=== PATIENT | male | born 1990 | race Two or more races ===

== ENCOUNTER 2018-12-27 19:53 | Emergency (ER) | payer OTHER ==
[~2018-12-27] VITALS: Ht 170.2 cm; Wt 79.4 kg
[~2018-12-27 19:53] MED LIST: ACET500C5 PO; ONDA4TAB14 PO
[2018-12-27 20:07] VITALS: Ht 170.2 cm; Wt 79.4 kg
[2018-12-27] MEDS ORDERED: ONDANSETRON 4 MG INJ IV STA (20:32)
[2018-12-27] MEDS ORDERED: ACETAMINOPHEN 500 MG TAB PO STA (20:32)
[2018-12-27] MEDS ORDERED: morphine 4 MG/ML VIAL IV STA (20:32)
[2018-12-27] MEDS ORDERED: SODIUM CHLORIDE 0.9% 1L BAG IV* STA (20:32)
[2018-12-27 22:57] VITALS: BP 115/62; PULSE 105; RESP 18
--- NOTE | 2018-12-27 23:13 | ERD ---
ER Documentation Chief Complaint Chief Complaint abd pain; nausea; denies vomiting HPI Patient is a 28-year-old male, past medical history of anal fistula, aortic insufficiency, presents the ER for concerns of abdominal pain, nausea and chills which started this morning. Patient states pain is localized to the epigastric region. He denies any radiation of the pain. Patient denies any fried, acidic, spicy food intakes. Patient denies any chest pain or shortness of breath. Patient denies any vomiting or diarrhea. Patient also reports hand numbness and foot numbness. Patient denies any rectal bleeding, dysuria, frequency, urgency or hematuria. Patient states he has upcoming anal fistula surgery. Denies any IV drug use. ROS All systems reviewed and are negative except as per history of present illness. Medications Home Meds Active Scripts Ondansetron (Ondansetron Odt) 4 Mg Tab.rapdis, 4 MG PO Q6H PRN for NAUSEA AND/OR VOMITING, #10 TAB Prov:VAUGHN FLOR PA-C 12/27/18 Acetaminophen* (Tylophen*) 500 Mg Capsule, 1 CAP PO Q6H PRN for PAIN AND OR ELEVATED TEMP, #20 CAP Prov:VAUGHN FLOR PA-C 12/27/18 Allergies Allergies: Coded Allergies: No Known Allergy (Unverified , 12/27/18) PMhx/Soc Medical and Surgical Hx: pt denies Surgical Hx History of Surgery: No Anesthesia Reaction: No Hx Neurological Disorder: No Hx Respiratory Disorders: No Hx Cardiac Disorders: No Hx Psychiatric Problems: No Hx Miscellaneous Medical Probl: No Hx Alcohol Use: Yes Hx Substance Use: No Hx Tobacco Use: No Smoking Status: Never smoker FmHx Family History: No diabetes Physical Exam Vitals Vital Signs Date Temp Pulse Resp B/P (MAP) Pulse Ox O2 O2 Flow FiO2 Time Delivery Rate 12/27/18 100.0 105 18 115/62 Room Air 22:57 (79) 12/27/18 101.8 20:50 12/27/18 134 18 131/81 97 20:33 (98) 12/27/18 101.5 20:23 12/27/18 98.9 140 18 135/85 20:07 (102) Physical Exam GENERAL: Well-developed, well-nourished male. Appears in no acute distress. HEAD: Normocephalic, atraumatic. No deformities or ecchymosis. EYE: Pupils equal, round, and reactive to light. EOMs intact. No conjunctival erythema. No eye discharge. ENT: External ear without any masses or tenderness. Auditory canals clear bilaterally. TM visualized bilaterally, non-erythematous, non-bulging. Nasal mucosa pink with no discharge. Oropharynx is pink without any tonsillar erythema or exudates. No uvula deviation. No kissing tonsils. NECK: Supple. No meningismus. Normal ROM of the neck. LUNG: Clear to auscultation bilaterally. No rhonchi, wheezing, rales or coarse breath sounds. HEART: Tachycardia cardiac no murmurs, rubs or gallops. ABDOMEN: Soft, and nondistended. Tender to palpation in all 4 quadrants, greatest in the epigastric region.. Positive bowel sounds in all four quadrants. No rebound tenderness, no guarding. (-) McBurney's point tenderness. No CVA tenderness. EXTREMITES: Equal pulses bilaterally. No peripheral clubbing, cyanosis or edema. No unilateral leg swelling. NEUROLOGIC: Alert and oriented to person, place and time. Moving all four extremities. 5/5 strength in all extremities. Normal speech. Steady gait. SKIN: Normal color. Warm and dry. No rashes or lesions. Result Diagram: 12/27/18204912/27/182049 Results 24 hrs Laboratory Tests Test 12/27/18 20:50 12/27/18 21:11 White Blood Count 9.0 10^3/ul Red Blood Count 5.87 10^6/ul Hemoglobin 15.9 g/dl Hematocrit 46.8 % Mean Corpuscular Volume 79.7 fl Mean Corpuscular Hemoglobin 27.1 pg Mean Corpuscular Hemoglobin Concent 34.0 g/dl Red Cell Distribution Width 12.4 % Platelet Count 263 10^3/UL Mean Platelet Volume 9.8 fl Immature Granulocytes % 0.200 % Neutrophils % 81.9 % Lymphocytes % 11.2 % Monocytes % 6.0 % Eosinophils % 0.4 % Basophils % 0.3 % Nucleated Red Blood Cells % 0.0 /100WBC Immature Granulocytes # 0.020 10^3/ul Neutrophils # 7.4 10^3/ul Lymphocytes # 1.0 10^3/ul Monocytes # 0.5 10^3/ul Eosinophils # 0.0 10^3/ul Basophils # 0.0 10^3/ul Nucleated Red Blood Cells # 0.0 10^3/ul Sodium Level 141 mmol/L Potassium Level 3.5 mmol/L Chloride Level 105 mmol/L Carbon Dioxide Level 25 mmol/L Anion Gap 11 Blood Urea Nitrogen 14 mg/dl Creatinine 0.95 mg/dl Est Glomerular Filtrat Rate mL/min > 60 mL/min Glucose Level 98 mg/dl Calcium Level 9.8 mg/dl Total Bilirubin 0.5 mg/dl Direct Bilirubin 0.00 mg/dl Indirect Bilirubin 0.5 mg/dl Aspartate Amino Transf (AST/SGOT) 25 IU/L Alanine Aminotransferase (ALT/SGPT) 28 IU/L Alkaline Phosphatase 53 IU/L Creatine Kinase 129 IU/L Troponin I < 0.012 ng/ml Total Protein 8.1 g/dl Albumin 4.9 g/dl Globulin 3.20 g/dl Albumin/Globulin Ratio 1.53 Lipase 61 U/L Urine Color YELLOW Urine Clarity CLEAR Urine pH 9.0 Urine Specific [place] 1.015 Urine Ketones NEGATIVE mg/dL Urine Nitrite NEGATIVE mg/dL Urine Bilirubin NEGATIVE mg/dL Urine Urobilinogen NEGATIVE mg/dL Urine Leukocyte Esterase NEGATIVE Valorie/ul Urine Hemoglobin NEGATIVE mg/dL Urine Glucose NEGATIVE mg/dL Urine Total Protein NEGATIVE mg/dl Urine Opiates Screen Positive Urine Barbiturates Negative Urine Amphetamines Screen Negative Urine Benzodiazepines Screen Negative Urine Cocaine Screen Negative Urine Cannabinoids Negative Current Medications Medications Dose Sig/Power Start Time Status Last (Trade) Ordered Route PRN Stop Time Admin Dose Reason Admin Sodium 2,380 ml BOLUS OVER 2 12/27/18 DC 12/27/18 Chloride HOURS STAT 20:32 20:47 (NS) IV* 12/27/18 20:36 1,000 mg ONCE STAT 12/27/18 DC 12/27/18 Acetaminophen PO 20:32 20:50 (Tylenol 12/27/18 20:36 Tab) Morphine 4 mg ONCE STAT 12/27/18 DC 12/27/18 Sulfate IV 20:32 20:50 (morphine) 12/27/18 20:36 Ondansetron 4 mg ONCE STAT 12/27/18 DC 12/27/18 HCl (Zofran IV 20:32 20:50 Inj) 12/27/18 20:36 Procedures/MDM ED COURSE: The patient was stable throughout ED course. I kept the patient and/or family informed of laboratory and diagnostic imaging results throughout the ED course. EKG: Read by Dr. Martines attending physician. EKG showed tachycardia at 117 bpm. No arrhythmias, acute ST elevations or T wave changes were noted. DIAGNOSTIC IMAGING: Read by radiologist. DIAGNOSTIC IMAGING REPORT Patient: GARFIELD KRUSE : 1990 Age: 28 Sex: M MR #: [id number] DOS: 12/27/18 2132 Ordering MD: VAUGHN FLOR PA-C Location: [facility] Room/Bed: PROCEDURE: CT Abdomen and pelvis without contrast. CLINICAL INDICATION: Abdominal pain. TECHNIQUE: CT scan of the abdomen and pelvis was performed on a multi- detector high-resolution CT scanner. Contiguous axial images were obtained from the lung bases to the ischial tuberosities without intravenous contrast. Coronal and sagittal reformatted images were also obtained. Images were reviewed on the PACS workstation. DICOM images are available. One or more of the following dose reduction techniques were used: - Automated exposure control. - Adjustment of the mA and/or kV according to patient size. - Use of iterative reconstruction technique. Exam CTD/vol = 10.46 mGy. Total exam DLP = 602.86 mGy-cm. COMPARISON: None. FINDINGS: Evaluation of the lung bases demonstrates a 6 mm nodule within the left lower lobe. Abdomen: The liver is normal in size. There is no focal mass or dilatation of the biliary tree. The gallbladder is not distended. The spleen, pancreas and bilateral adrenal glands are within normal limits. Bilateral kidneys are normal in size with no contour deforming mass identified. There is no radiopaque renal or ureteral calculus identified. There is no hydronephrosis or hydroureter. There are small periaortic lymph nodes. The abdominal aorta is of normal ca liber. There is a small umbilical hernia containing fat. There is no bowel obstruction or free air. A normal appendix is identified. There is no diverticulosis or diverticulitis. There is no ascites. Pelvis: The bladder is unremarkable. The prostate and seminal vesicles are within normal limits. There is no significant pelvic adenopathy or free fluid. Evaluation of the osseous structures demonstrates no suspicious lytic or blastic lesion. IMPRESSION: No acute abnormality identified within the abdomen and pelvis. Small umbilical hernia containing fat. Left lower lobe 6 mm nodule. Follow-up by Fleischner guidelines is recommended. .Akhil Hidalgo MD, MD Date Time Electronically viewed and signed by .Akhil Hidalgo MD, MD on 12/27/2018 22:22 .T/ CC: VAUGHN FLOR PA-C [id number] DIAGNOSTIC IMAGING REPORT Patient: GARFIELD KRUSE : 1990 Age: 28 Sex: M MR #: [id number] DOS: 12/27/182131 Ordering MD: VAUGHN FLOR PA-C Location: [facility] Room/Bed: PROCEDURE: Abdominal ultrasound, limited. CLINICAL INDICATION: Abdominal pain. TECHNIQUE: Multiple real-time images were acquired of the patient's right upper abdomen utilizing a high resolution transducer. COMPARISON: None FINDINGS: The liver demonstrates normal echogenicity and size measuring 16.4 cm. There is no focal mass or intrahepatic biliary ductal dilatation. The portal vein is patent. The gallbladder is mildly distended. No gallstones are identified. There is no pericholecystic fluid or gallbladder wall thickening. The common bile duct measures 3.7 mm in maximal dimension. The pancreas is obscured by overlying bowel gas. No free fluid is identified. The right kidney is normal size and echogenicity measuring 11.2 cm. There is no focal renal mass identified. There is a 6.8 mm echogenic calculus within the lower pole of the right kidney. There is no obstructive uropathy. IMPRESSION: Nonobstructing right renal calculus. Pancreas obscured by overlying bowel gas. Otherwise unremarkable right upper abdominal ultrasound. .Akhil Hidalgo MD, MD Date Time Electronically viewed and signed by .Akhil Hidalgo MD, MD on 12/27/2018 22:24 .T/ CC: VAUGHN FLOR PA-C [id number] Patient: GARFIELD KRUSE : 1990 Age: 28 Sex: M MR #: [id number] DOS: 12/27/182031 Ordering MD: VAUGHN FLOR PA-C Location: [facility] Room/Bed: PROCEDURE: XR Chest AP portable CLINICAL INDICATION: Sepsis TECHNIQUE: An AP portable radiograph of the chest was submitted. COMPARISON: None available FINDINGS: Support Hardware: None Cardiovascular: The cardiovascular silhouette appears unremarkable. Lung Ventura: The lung ventura and pleural spaces are clear. Pleural Spaces: No pneumothorax or pleural effusion is identified. Osseous Structures: The osseous structures appear intact. Soft Tissues: Unremarkable IMPRESSION: Unremarkable portable chest without evidence of active cardiopulmonary disease. Physician Leila Date Time Electronically viewed and signed by Physician Leila on 12/27/2018 21:01 RH/ CC: VAUGHN FLOR PA-C [id number] PROCEDURES: None. MEDICATIONS GIVEN: IV fluids, Zofran, morphine, Tylenol MEDICAL DECISION MAKING: This is a 28-year-old male, past medical history of aortic insufficiency, anal fistula, presents the ER for concerns of abdominal pain, nausea and chills x1 day. Vital signs were reviewed. Patient was febrile initial presentation with a temperature of 101.5 Fahrenheit. Patient was also noted to be tachycardic with a pulse of 140 at triage. Patient was not hypoxic. On general impression, patient was well-appearing. Patient did not appear toxi c. On exam, patient had diffuse tenderness in all 4 quadrants. Case was discussed with supervising physician Dr. Martines who agreed it was appropriate to call code sepsis given patient's initial vital signs. Initial lactate POC was obtained and noted to be 1.6. Remaining lactic acids were discontinued. Code sepsis was canceled. Blood work was obtained. IV line was established. CBC showed no evidence of systemic infection or severe anemia. CMP showed no evidence of electrolyte abnormalities, severe acidosis, alkalosis, renal failure, or liver disease. Lipase showed no evidence of acute pancreatitis. Troponin was negative. CK was within normal limits. UA showed no evidence of acute infection or hematuria. Urine drug test was positive for opiates. EKG showed sinus tachycardia. Chest x-ray was unremarkable. See formal report above. Gallbladder ultrasound was negative for acute findings. Nonobstructing right renal calculus is noted within the lower pole of the right kidney. Of note, CT scan did not note this finding. CT abdomen pelvis was negative for acute abnormalities. Incidental left lower lobe lung 6 mm nodule was noted. Discussed these findings with patient. Patient advised to follow-up with senior sustainability consultant for further management. At this time, patient presentation is most consistent with abdominal pain and fever. Differential diagnoses include but was not limited to acute coronary syndrome, AAA, mesenteric ischemia, endocarditis, lower lobe pneumonia, DKA, bowel perforation, cholecystitis, choledocholithiasis, ascending cholangitis, hepatic abscess, pancreatitis, PUD, gastritis, GERD, splenic rupture, diverticulitis, UTI, pyelonephritis, nephrolithiasis, appendicitis, constipation, testicular torsion, epididymitis, urethritis, or prostatitis. Patient was nontoxic, [id number] prior to discharge. Low suspicion for sepsis. Patient was advised to follow-up with a GI specialist for further management of his symptoms. PRESCRIPTIONS: Tylenol DISCHARGE: At this time, patient is stable for discharge and outpatient management. I have instructed the patient to follow-up with his/her primary care physician in 1-2 days. I have instructed the patient to promptly return to the ER at any time for any new or worsening symptoms including increased pain, nausea, vomiting, diarrhea, fever, weakness or LOC. The patient and/or family expressed u nderstanding of and agreement with this plan. All questions were answered. Home care instructions were provided. Disclaimer: Inadvertent spelling and grammatical errors are likely due to EHR/dictation software use and do not reflect on the overall quality of patient care. Also, please note that the electronic time recorded on this note does not necessarily reflect the actual time of the patient encounter. Departure Diagnosis: Primary Impression: Abdominal pain Abdominal location: unspecified location Qualified Codes: R10.9 - Unspecified abdominal pain Additional Impressions: Nausea Nodule of left lung Fever Fever type: unspecified Qualified Codes: R50.9 - Fever, unspecified Condition: Fair Patient Instructions: Abdominal Pain Referrals: [facility] YOU HAVE RECEIVED A MEDICAL SCREENING EXAM AND THE RESULTS INDICATE THAT YOU DO NOT HAVE A CONDITION THAT REQUIRES URGENT TREATMENT IN THE EMERGENCY DEPARTMENT. FURTHER EVALUATION AND TREATMENT OF YOUR CONDITION CAN WAIT UNTIL YOU ARE SEEN IN YOUR DOCTORS OFFICE WITHIN THE NEXT 1-2 DAYS. IT IS YOUR RESPONSIBILITY TO MAKE AN APPOINTMENT FOR FOLOW-UP CARE. IF YOU HAVE A PRIMARY DOCTOR --you should call your primary doctor and schedule an appointment IF YOU DO NOT HAVE A PRIMARY DOCTOR YOU CAN CALL OUR PHYSICIAN REFERRAL HOTLINE AT IF YOU CAN NOT AFFORD TO SEE A PHYSICIAN YOU CAN CHOSE FROM THE FOLLOWING [facility] [place] [address] [facility] [facility] [address] [facility]. [facility] [address] [facility] [address] [facility] [facility] [address] [facility]. [facility] [address] [facility]. [facility] YOU HAVE RECEIVED A MEDICAL SCREENING EXAM AND THE RESULTS INDICATE THAT YOU DO NOT HAVE A CONDITION THAT REQUIRES URGENT TREATMENT IN THE EMERGENCY DEPARTMENT. FURTHER EVALUATION AND TREATMENT OF YOUR CONDITION CAN WAIT UNTIL YOU ARE SEEN IN YOUR DOCTORS OFFICE WITHIN THE NEXT 1-2 DAYS. IT IS YOUR RESPONSIBILITY TO MAKE AN APPOINTMENT FOR FOLOW-UP CARE. IF YOU HAVE A PRIMARY DOCTOR --you should call your primary doctor and schedule and appointment IF YOU DO NOT HAVE A PRIMARY DOCTOR YOU CAN CALL OUR PHYSICIAN REFERRAL HOTLINE AT . IF YOU CAN NOT AFFORD TO SEE A PHYSICIAN YOU CAN CHOSE FROM THE FOLLOWING [facility] INSTITUTIONS: [facility] [address] [place] [address] [facility] [address] [place] [address] [facility] + [facility] [address] [place] [address] Additional Instructions: Follow-up with a senior sustainability consultant for further management of your lung nodule. Follow-up with a GI specialist on an outpatient basis. You likely need endoscopy. Call your primary care doctor TOMORROW for an appointment during the next 1-2 days.See the doctor sooner or return here if your condition worsens before your appointment time. VAUGHN FLOR PA-C Dec 27, 2018 23:13
== END 2018-12-27 23:12 | disposition home or self-care (01) ==
LOC: FTE 19:53
DX: R10.13 Epigastric pain (principal); R11.0 Nausea; R50.9 Fever, unspecified; R91.1 Solitary pulmonary nodule
CPT/HCPCS: 36415; 71045; 74176; 76705; 80053; 80307; 81003; 82550; 83690; 84484; 85025; 87040; 87086; 93005; 96374; 96375; J2270; J2405; J7030; Z7502; Z7610